=== PATIENT | female | born 1980 | race Caucasian/White ===

== ENCOUNTER 2017-02-16 11:12 | Day surgery (SDC) | payer BC ==
[~2017-02-16] VITALS: Ht 162.6 cm; Wt 76.6 kg
[~2017-02-16 11:12] MED LIST: BIOT50004 PO; BUPIVACAINE HCL 0.25% 30 ML VIAL As Ordered ONE; GLYCOPYRROLATE INJ 0.2 MG/ML 2 ML VIAL As Ordered ONE; HYDROmorphone HCL 2 MG/ML 1ML VIAL (J1170) As Ordered ONE; LIDOCAINE 2% INJ 100 MG/5 ML SDV (FOR ANES.) As Ordered ONE; METHYLENE BLUE 0.5% (5MG/ML) 10 ML AMP (PROVAYBLUE)(Q9968 PER 1MG) As Ordered ONE; MIDAZOLAM INJ 2 MG/2 ML VIAL (J2250) As Ordered ONE; NEOSTIGMINE 10 MG/10 ML VIAL (J2710) As Ordered ONE; ONDANSETRON 4MG/2ML VIAL (J2405) As Ordered ONE; PROPOFOL 200 MG/20 ML VIAL As Ordered ONE; ROCURONIUM BROMIDE 50 MG/5 ML VIAL As Ordered ONE; dexameTHASONE 4 MG/ML 1ML VIAL (J1100) As Ordered ONE; fentaNYL 100 MCG/2 ML INJECTION (J3010) As Ordered ONE
[2017-02-16] MEDS ORDERED: LR 1,000 ML IV SCH ×3 (11:30→14:45)
[2017-02-16] MEDS ORDERED: CEFAZOLIN SOD 1 GM in APPROPRIATE DILUENT 1 EA IV ONE (11:30)
[2017-02-16] MEDS ORDERED: LR 1,000 ML IV ONE (11:30)
[2017-02-16 11:37] LABS: MEAN CORPUSCULAR HEMOGLOBIN 29.8 pg (27.0-33.0); MEAN CORPUSCULAR HGB CONC 33.8 g/dl (32.0-36.5); MEAN CORPUSCULAR VOLUME 88.3 fl (80.0-96.0); PLATELET COUNT, AUTOMATED 213 10^3/uL (150-450); RED CELL DISTRIBUTION WIDTH 12.3 % (11.5-14.5); WHITE BLOOD COUNT 7.3 10^3/uL (4.0-10.0)
[2017-02-16 11:48] LABS: CONTROL LINE UCG INT CTR LINE PRESENT
[2017-02-16] MEDS ORDERED: OXYC1TAB23 PO (12:15)
[2017-02-16] MEDS ORDERED: LABETALOL HCL 100 MG/20 ML VIAL As Ordered ONE (13:27)
[2017-02-16] MEDS ORDERED: KETOROLAC 30 MG/ML VIAL (J1885) IV PRN (14:45)
[2017-02-16] MEDS ORDERED: ONDANSETRON 4MG/2ML VIAL (J2405) IV PRN ×2 (14:45)
[2017-02-16] MEDS ORDERED: HYDROmorphone HCL 1 MG/ML SYRINGE (J1170) IV PRN (14:45)
[2017-02-16] MEDS ORDERED: PERCOCET 5MG/325MG TAB PO PRN ×2 (14:45)
[2017-02-16] MEDS ORDERED: MORPHINE 4 MG/ML 1ML SYRINGE IV PRN (14:45)
[2017-02-16] MEDS: fentaNYL 100 MCG/2 ML INJECTION (J3010) IV PRN ×4 (14:47→15:20)
[2017-02-16 16:15] VITALS: BP 117/66
[2017-02-16] MEDS ORDERED: DOCUSATE SODIUM 100 MG CAP PO SCH (21:00)
--- NOTE | 2017-02-18 18:48 | RO ---
DATE OF PROCEDURE: 02/16/2017 PREPROCEDURE DIAGNOSES: Menorrhagia. POSTPROCEDURE DIAGNOSES: Menorrhagia. OPERATIVE PROCEDURES: Robotic assisted laparoscopic hysterectomy, cystoscopy. SURGEON: Mike Larson MD COAT FITTER: Danae Ratliff NP ANESTHESIA: General endotracheal. ESTIMATED BLOOD LOSS: Less than 100 mL. URINE OUTPUT: 200 mL FINDINGS: Normal uterus, fallopian tubes and ovaries. DESCRIPTION OF PROCEDURE: The patient was taken to the operating room where general endotracheal anesthesia was induced. She was prepped and draped in a sterile fashion in the dorsal lithotomy position. A Jluian catheter was placed. A VCare uterine manipulator was placed. A periumbilical incision was made with a scalpel. A Veress needle was placed through this incision with tenting up on the skin of the abdomen. Intraabdominal location of the Veress needle was assessed using a saline-filled syringe. A pneumoperitoneum was created. An 11 mm trocar was placed through this incision using Almondyort. Three 8 mm suprapubic ports were placed under direct visualization. The patient was placed in Trendelenburg position and the [employer] Karl[employer] surgical robot was docked to the ports. Using the PK dissector and monopolar EndoShears the uteroovarian ligaments, fallopian tubes and round ligaments were coagulated and incised. A bladder flap was created. The uterine vessels were coagulated and incised. Colpotomy was created anteriorly in the upper vagina at the level of the VCare cup. The colpotomy was extended circumferentially around the upper vagina. The area of the specimen including the uterus and cervix was removed through the vagina. Vaginal mucosa was closed with #0 V-Loc suture in a running fashion. The pelvis was copiously irrigated. Danae Ratliff NP assisted with all aspects of the procedure from beginning to end. She assisted with positioning of the patient and insertion of the ports. She manipulated the uterus throughout the procedure and was responsible for removing the specimen through the vagina. She also assisted with closing the ports and getting the patient off the table. The patient received Methylene blue dye intravenously. Cystoscopy was performed using a 70 degrees cystoscope. Bilateral ureteral jets were identified. There was no evidence of injury to the bladder. All ports removed. Skin was closed with #4-0 Monocryl subcuticular sutures. Sponge, instrument and needle counts were correct. [facility]
== END 2017-02-16 17:30 | disposition home or self-care (01) ==
LOC: M SDC 11:12 → M OBS 15:45 → M SDC 17:30
PROVIDERS: ATTEND Specialist
DX: N92.0 Excessive and frequent menstruation with regular cycle (principal); Z91.018 Allergy to other foods; Z79.899 Other long term (current) drug therapy
CPT/HCPCS: 36415; 58570; 84703; 85027; 88307; J0690; J1100; J1170; J1885; J2250; J2405; J2710; J3010; Q9968

== ENCOUNTER → 2019-07-30 | Outpatient (REF) | payer BC, OTHER ==
[~2019-07-30] MED LIST changes: -BUPIVACAINE HCL 0.25% 30 ML VIAL As Ordered ONE; -GLYCOPYRROLATE INJ 0.2 MG/ML 2 ML VIAL As Ordered ONE; -HYDROmorphone HCL 2 MG/ML 1ML VIAL (J1170) As Ordered ONE; -LIDOCAINE 2% INJ 100 MG/5 ML SDV (FOR ANES.) As Ordered ONE; -METHYLENE BLUE 0.5% (5MG/ML) 10 ML AMP (PROVAYBLUE)(Q9968 PER 1MG) As Ordered ONE; -MIDAZOLAM INJ 2 MG/2 ML VIAL (J2250) As Ordered ONE; -NEOSTIGMINE 10 MG/10 ML VIAL (J2710) As Ordered ONE; -ONDANSETRON 4MG/2ML VIAL (J2405) As Ordered ONE; +OXYC1TAB23 PO; -PROPOFOL 200 MG/20 ML VIAL As Ordered ONE; -ROCURONIUM BROMIDE 50 MG/5 ML VIAL As Ordered ONE; -dexameTHASONE 4 MG/ML 1ML VIAL (J1100) As Ordered ONE; -fentaNYL 100 MCG/2 ML INJECTION (J3010) As Ordered ONE
== END ==
LOC: M SFHCWAGY 08:05
PROVIDERS: ATTEND Nurse Practitioner Women's Health
DX: Z12.4 Encounter for screening for malignant neoplasm of cervix (principal)
CPT/HCPCS: 87624; G0123

== ENCOUNTER → 2019-12-24 | Outpatient (CLI) | payer OTHER ==
--- NOTE | 2019-12-24 08:52 | REP ---
INDICATION: RECURRENT SINUSITIS. COMPARISON: None. TECHNIQUE: Helical scanning is acquired and 3 mm axial images are generated. Coronal MPR images are generated. FINDINGS: Digital preliminary yard hand radiographs are unremarkable. The maxillary sinuses are clear. Ethmoid, sphenoid, and frontal air cells are clear as well. Mastoid aeration is normal and symmetric. The bony nasal septum deviates mildly to the left without a septal beak. Nasal turbinates soft tissues are unremarkable. Ostiomeatal complexes are patent bilaterally. No intraorbital abnormality is seen. Visualized intracranial structures are normal. IMPRESSION: Negative maxillofacial CT study. <Electronically signed by Dejuan Jimenez > 12/24/19 [id number]
== END ==
LOC: M RAD 07:11
PROVIDERS: ATTEND Physician Assistant
DX: J32.9 Chronic sinusitis, unspecified (principal)

== ENCOUNTER → 2020-02-21 | Outpatient (CLI) | payer SELFPAY | LOC: M LABSMTC 13:18 | PROVIDERS: ATTEND Pediatrics | DX: Z20.828 Contact with and (suspected) exposure to other viral communicable diseases (principal) ==

== ENCOUNTER → 2021-07-14 | Outpatient (REF) | payer OTHER ==
[2021-07-14 12:16] LABS: APPEARANCE, URINE CLEAR (CLEAR); BACTERIA, URINE AUTO NEGATIVE (NEGATIVE); BILIRUBIN, URINE AUTO NEGATIVE (NEGATIVE); BLOOD, URINE BLOOD NEGATIVE (NEGATIVE); COLOR, URINE YELLOW (YELLOW); GLUCOSE, URINE (UA) AUTO NEGATIVE (NEGATIVE); KETONE, URINE AUTO NEGATIVE (NEGATIVE); LEUKOCYTE ESTERASE, URINE AUTO NEGATIVE (NEGATIVE); MUCUS, URINE SMALL (NEGATIVE); NITRITE, URINE AUTO NEGATIVE (NEGATIVE); PROTEIN, URINE AUTO NEGATIVE (NEGATIVE); RBC, URINE AUTO 0 /HPF (0-3); SPECIFIC GRAVITY URINE AUTO 1.026 (1.002-1.035); SQUAMOUS EPITHELIAL CELL UR AU 1 /HPF (0-6); UROBILINOGEN, URINE AUTO 0.2 mg/dL (0.0-2.0); WBC, URINE AUTO 1 /HPF (0-3)
[2021-07-14 12:26] LABS: BASO % 0.5 % (0.0-1.0); EOS # 0.1 10^3/uL (0.0-0.5); EOS % 1.6 % (0.0-3.0); HEMATOCRIT 40.2 % (36.0-47.0); HEMOGLOBIN 13.5 g/dl (12.0-15.5); LYMPH # 1.8 10^3/uL (1.5-5.0); LYMPH % 40.3 % (24.0-44.0); MEAN CORPUSCULAR HEMOGLOBIN 32.3 pg (27.0-33.0); MEAN CORPUSCULAR HGB CONC 33.6 g/dl (32.0-36.5); MEAN CORPUSCULAR VOLUME 96.2 fl (80.0-96.0); MONO # 0.3 10^3/uL (0.0-0.8); MONO % 7.2 % (2.0-8.0); NEUTROPHILS # 2.2 10^3/uL (1.5-8.5); NEUTROPHILS % 50.2 % (36.0-66.0); PLATELET COUNT, AUTOMATED 164 10^3/uL (150-450); RED BLOOD COUNT 4.18 10^6/uL (4.00-5.40); WHITE BLOOD COUNT 4.4 10^3/uL (4.0-10.0)
[2021-07-14 12:53] LABS: ALBUMIN 3.4 GM/DL (3.2-5.2); ALT/SGPT 37 U/L (12-78); BILIRUBIN,TOTAL 0.6 MG/DL (0.2-1.0); BLOOD UREA NITROGEN 20 MG/DL (7-18); CALCIUM LEVEL 8.4 MG/DL (8.5-10.1); CARBON DIOXIDE LEVEL 32 MEQ/L (21-32); CHLORIDE LEVEL 107 MEQ/L (98-107); CHOLESTEROL LEVEL 148 MG/DL (<200); CHOLESTEROL RISK RATIO 2.312 (<5); CREATININE FOR GFR 0.71 MG/DL (0.55-1.30); FREE T4 0.83 NG/DL (0.76-1.46); GLOMERULAR FILTRATION RATE > 60.0 (>58); GLUCOSE, FASTING 93 MG/DL (70-100); HDL CHOLESTEROL 64 MG/DL (>40); LDL CHOLESTEROL 58 MG/DL (<100); NON-HDL-C 84 MG/DL; POTASSIUM SERUM 4.3 MEQ/L (3.5-5.1); SODIUM LEVEL 142 MEQ/L (136-145); TOTAL 25(OH) VITAMIN D 53.9 NG/ML (30.0-100.0); TRIGLYCERIDES LEVEL 132 MG/DL (<150); VITAMIN B12 LEVEL 1332 PG/ML
[2021-07-17 14:33] LABS: FOLATE > 24.0 NG/ML
== END ==
LOC: M SFHCCLAY 07:02
PROVIDERS: ATTEND Physician Assistant
DX: R53.83 Other fatigue (principal); R61 Generalized hyperhidrosis

== ENCOUNTER → 2021-07-15 | Outpatient (REF) | payer OTHER ==
[2021-07-15 16:40] LABS: C REACTIVE PROTEIN QUANTITATIV < 0.30 MG/DL (0.00-0.30); FOLLICLE STIMULATING HORMONE 4.8 mIU/mL; IMMUNOGLOBULIN G 916 MG/DL (681-1648); IMMUNOGLOBULIN M 92.8 MG/DL (40-230); LUTEINIZING HORMONE 6.5 mIU/mL; MAGNESIUM LEVEL 2.3 MG/DL (1.8-2.4); MONO REFLEX EBV COMP NEGATIVE (NEGATIVE)
[2021-07-15 17:19] LABS: HEPATITIS C VIRUS ABY INDEX 0.1 INDEX (<0.8); HIV 1&2 SCREEN CENTAUR NEGATIVE (NEGATIVE)
[2021-07-17 15:08] LABS: EBV AB TO NUCLEAR ANTIGEN 67.8 U/mL (0.0-17.9); EBV VIRAL CAPSID AG IgG >600.0 U/mL (0.0-17.9); EBV VIRAL CAPSID AG IgM <36.0 U/mL (0.0-35.9)
== END ==
LOC: M SFHCCAPE 08:42
PROVIDERS: ATTEND Physician Assistant
DX: R53.83 Other fatigue (principal); R61 Generalized hyperhidrosis

== ENCOUNTER → 2022-06-22 | Outpatient (CLI) | payer OTHER | LOC: M WHC 09:38 | PROVIDERS: ATTEND Specialist | DX: Z12.31 Encounter for screening mammogram for malignant neoplasm of breast (principal) ==

== ENCOUNTER → 2022-06-22 | Outpatient (REF) | payer OTHER | LOC: M PLALAB 08:51 | PROVIDERS: ATTEND Specialist | DX: N63.11 Unspecified lump in the right breast, upper outer quadrant (principal); N63.21 Unspecified lump in the left breast, upper outer quadrant; Z12.31 Encounter for screening mammogram for malignant neoplasm of breast ==

== ENCOUNTER → 2022-07-08 | Outpatient (CLI) | payer OTHER | LOC: M WHC 07:32 | PROVIDERS: ATTEND Specialist | DX: R92.8 Other abnormal and inconclusive findings on diagnostic imaging of breast (principal) ==